=== PATIENT | female | born 1950 | race African-American/Black ===

== ENCOUNTER 2025-05-17 10:14 | Inpatient (IN) | payer MEDICARE ==
[~2025-05-17] VITALS: Ht 167.6 cm; Wt 92.5 kg
[2025-05-17 10:17] VITALS: O2SAT 98
[2025-05-17] MEDS: PIPERACILLIN/TAZO 3.375G/50ML 50 ML IV ONE (11:00)
[2025-05-17] MEDS: SODIUM CHLORIDE 0.9% (SEPSIS BOLUS) IV ONE (11:00)
[2025-05-17 11:15] LABS: BASOPHILS % 0.3 % (0.0-2.0); EOSINOPHILS % 0.2 % (0.0-5.0); HEMATOCRIT. 48.0 % (36.0-48.0); HEMOGLOBIN. 15.4 g/dL (12.0-16.0); LYMPHOCYTES % 10.7 % (20.0-50.0); MEAN PLATELET VOLUME 10.6 fl (7.4-10.4); MONOCYTES % 8.9 % (2.0-8.0); NEUTROPHILS % 79.9 % (40.0-76.0); PLATELET 232 x1000/uL (130-400); RED BLOOD CELL COUNT 5.67 mill/uL (4.2-5.4); RED CELL DISTRIBUTION WIDTH 14.2 % (11.6-14.6)
[2025-05-17] MEDS: VANCOMYCIN 1G PREMIX 200 ML IV ONE (11:30)
[2025-05-17 11:32] LABS: CREATININE 1.0 mg/dL (0.6-1.0); UREA NITROGEN BLOOD 12 mg/dL (9-23)
[2025-05-17 11:34] LABS: ASPARTATE AMINOTRANSFERASE 11 IU/L (<34); BILIRUBIN DIRECT 1.0 mg/dL (<=3.0); BILIRUBIN TOTAL 2.5 mg/dL (0.1-1.0); PROTEIN TOTAL 7.2 g/dL (6.0-8.3)
[2025-05-17 11:45] LABS: INR 1.1
[2025-05-17] MEDS ORDERED: ACETAMINOPHEN 325MG TABLET PO PRN ×2 (14:30)
[2025-05-17] MEDS ORDERED: IPRATROPIUM/ALBUTEROL 0.5-3(2.5)MG/3ML NEB HHN PRN (14:30)
[2025-05-17] MEDS ORDERED: CLONIDINE 0.1MG TABLET PO PRN (14:30)
[2025-05-17] MEDS ORDERED: DOCUSATE SODIUM 100MG CAPSULE PO PRN (14:30)
[2025-05-17] MEDS ORDERED: ONDANSETRON HCL 4MG/2ML INJ IV PRN (14:30)
[2025-05-17 20:00] VITALS: BP_SYST 101; BP_SYST 98; BP_DIAS 50; PULSE 104; PULSE 91; RESP 18; TEMP 36.0844; TEMP 36.7; O2SAT 97
[2025-05-18] VITALS: BP 101/50; PULSE 104; RESP 18; TEMP 36.1; O2SAT 95
[2025-05-18] MEDS: POTASSIUM CHLORIDE 20MEQ/PACKET PO NR (00:28)
[2025-05-18] MEDS: SODIUM CHLORIDE 0.9% 1,000 ML IV SCH (00:29)
[2025-05-18 04:00] VITALS: BP 92/53; PULSE 105; RESP 18; TEMP 36.1; O2SAT 96
[2025-05-18] MEDS: PIPERACILLIN/TAZO 3.375G/50ML 50 ML IV SCH (05:33)
[2025-05-18 07:10] LABS: BASOPHILS % 0.3 % (0.0-2.0); EOSINOPHILS % 0.3 % (0.0-5.0); HEMATOCRIT. 38.4 % (36.0-48.0); HEMOGLOBIN. 12.8 g/dL (12.0-16.0); LYMPHOCYTES % 17.3 % (20.0-50.0); MEAN PLATELET VOLUME 10.9 fl (7.4-10.4); MONOCYTES % 10.3 % (2.0-8.0); NEUTROPHILS % 71.8 % (40.0-76.0); PLATELET 181 x1000/uL (130-400); RED BLOOD CELL COUNT 4.52 mill/uL (4.2-5.4); RED CELL DISTRIBUTION WIDTH 14.1 % (11.6-14.6)
[2025-05-18 07:16] LABS: CREATININE 0.7 mg/dL (0.6-1.0)
[2025-05-18 07:17] LABS: UREA NITROGEN BLOOD 8 mg/dL (9-23)
[2025-05-18 08:00] VITALS: BP 115/49; PULSE 86; RESP 18; TEMP 36.4; O2SAT 98
[2025-05-18] MEDS: VANCOMYCIN 1.25GM/250ML IV SCH (09:32)
[2025-05-18] MEDS ORDERED: ATEN-42 PO (10:59)
[2025-05-18] MEDS ORDERED: ASPI-1497 PO (10:59)
[2025-05-18] MEDS ORDERED: LEFL10TA19 PO (10:59)
[2025-05-18] MEDS ORDERED: FERR325T6 PO (10:59)
[2025-05-18] MEDS ORDERED: PARO30TA62 PO (10:59)
[2025-05-18] MEDS: NYSTATIN/TRIAMCIN CREAM 15GM TOP SCH (11:30)
[2025-05-18 12:00] VITALS: BP 118/52; PULSE 80; RESP 17; TEMP 36.7; O2SAT 97
[2025-05-18 20:00] VITALS: BP 99/50; PULSE 104; RESP 20; TEMP 36.9; O2SAT 98
[2025-05-18] MEDS: ATENOLOL 25MG TABLET PO SCH (20:00)
[2025-05-18] MEDS: ASPIRIN 81MG EC TABLET PO SCH (22:38)
[2025-05-19] VITALS: BP 107/57; PULSE 101; RESP 19; TEMP 36.5; O2SAT 98
[2025-05-19 04:00] VITALS: BP 159/59; PULSE 64; RESP 18; TEMP 36.1; O2SAT 93
[2025-05-19 08:12] VITALS: BP 100/54; PULSE 86; RESP 18; TEMP 36; O2SAT 97
[2025-05-19] MEDS ORDERED: LEFLUNOMIDE 10 MG TABLET PO SCH (09:00)
[2025-05-19] MEDS: FERROUS SULFATE 325MG TABLET PO SCH (09:15)
[2025-05-19] MEDS: PAROXETINE HCL 10MG TABLET PO SCH (09:17)
[2025-05-19 11:11] LABS: BASOPHILS % 0.4 % (0.0-2.0); EOSINOPHILS % 0.6 % (0.0-5.0); HEMATOCRIT. 39.1 % (36.0-48.0); HEMOGLOBIN. 12.8 g/dL (12.0-16.0); LYMPHOCYTES % 17.2 % (20.0-50.0); MEAN PLATELET VOLUME 10.6 fl (7.4-10.4); MONOCYTES % 7.0 % (2.0-8.0); NEUTROPHILS % 74.8 % (40.0-76.0); PLATELET 168 x1000/uL (130-400); RED BLOOD CELL COUNT 4.60 mill/uL (4.2-5.4); RED CELL DISTRIBUTION WIDTH 14.6 % (11.6-14.6)
[2025-05-19 11:21] LABS: CREATININE 0.9 mg/dL (0.6-1.0); UREA NITROGEN BLOOD 9 mg/dL (9-23)
[2025-05-19 11:25] LABS: T4 FREE 1.35 ng/dL (0.89-1.76)
[2025-05-19 11:32] LABS: FOLIC ACID (FOLATE) SERUM 7.77 ng/mL (>5.38); VITAMIN B12 SERUM 493 pg/mL (211-911)
[2025-05-19 12:00] VITALS: BP 119/58; PULSE 76; RESP 18; TEMP 36.6; O2SAT 98
[2025-05-19] MEDS: LEFLUNOMIDE 20 MG TABLET PO SCH (13:52)
[2025-05-19 15:40] LABS: CLARITY URINE CLEAR (CLEAR); COLOR URINE YELLOW (YELLOW); GLUCOSE URINE NEGATIVE (NEGATIVE); KETONES URINE NEGATIVE (NEGATIVE); LEUKOCYTE ESTERASE URINE 2+ (NEGATIVE); NITRITE URINE NEGATIVE (NEGATIVE); OCCULT BLOOD URINE NEGATIVE (NEGATIVE); PH URINE 5.5 (4.5-8.0); PROTEIN URINE TRACE (NEGATIVE); SPECIFIC GRAVITY URINE 1.019 (1.005-1.030); UROBILINOGEN URINE 1.0 E.U./dL (0.2-1.0)
[2025-05-19 16:04] LABS: BACTERIA URINE 2+; RBC URINE 0-2 /hpf (0-2); SQUAMOUS EPITHELIAL CELL URINE 1+ /lpf (RARE/1+)
[2025-05-19 16:05] LABS: YEAST URINE 1+
[2025-05-19 16:49] VITALS: BP 118/58; PULSE 86; RESP 18; TEMP 36.2; O2SAT 98
[2025-05-19] MEDS: MENTHOL/LANOLIN/CALAMINE/ZN OX OINT 71GM TOP SCH (17:28)
[2025-05-19 20:00] VITALS: BP 103/59; PULSE 88; RESP 18; TEMP 36.7; O2SAT 97
[2025-05-20] VITALS: BP 109/80; PULSE 82; RESP 18; TEMP 37; O2SAT 97
[2025-05-20 04:00] VITALS: BP 100/58; PULSE 80; RESP 18; TEMP 36.7; O2SAT 98
[2025-05-20 08:30] VITALS: BP 129/81; PULSE 58; RESP 20; TEMP 36.7; O2SAT 100
[2025-05-20] MEDS ORDERED: POTASSIUM CHLORIDE 20MEQ TABLET SR PO SCH (09:45)
[2025-05-20 12:15] VITALS: BP 117/52; PULSE 59; RESP 20; TEMP 36.4; O2SAT 98
[2025-05-20 13:30] LABS: PLATELET 181 x1000/uL (130-400); RED BLOOD CELL COUNT 4.44 mill/uL (4.2-5.4); RED CELL DISTRIBUTION WIDTH 14.0 % (11.6-14.6)
[2025-05-20 13:43] LABS: CREATININE 1.0 mg/dL (0.6-1.0)
[2025-05-20 13:44] LABS: UREA NITROGEN BLOOD 7 mg/dL (9-23)
[2025-05-20] MEDS: POTASSIUM CHLORIDE 20MEQ TABLET SR PO SCH (13:54)
[2025-05-20] MEDS: FLUCONAZOLE 150MG TABLET PO SCH (13:54)
[2025-05-20 16:30] VITALS: BP 120/82; PULSE 57; RESP 18; TEMP 36.5; O2SAT 98
[2025-05-20 20:00] VITALS: BP 124/42; PULSE 58; RESP 17; TEMP 36.5; O2SAT 99
[2025-05-21] VITALS (8 sets, daily range): BP systolic 111–138; BP diastolic 45–62; PULSE 55–72; RESP 18–20; TEMP 36.2–36.7; O2SAT 97–100
[2025-05-21 06:56] LABS: BASOPHILS % 0.3 % (0.0-2.0); EOSINOPHILS % 0.5 % (0.0-5.0); HEMATOCRIT. 36.7 % (36.0-48.0); HEMOGLOBIN. 12.2 g/dL (12.0-16.0); LYMPHOCYTES % 13.7 % (20.0-50.0); MEAN PLATELET VOLUME 10.2 fl (7.4-10.4); MONOCYTES % 8.9 % (2.0-8.0); NEUTROPHILS % 76.6 % (40.0-76.0); PLATELET 179 x1000/uL (130-400); RED BLOOD CELL COUNT 4.35 mill/uL (4.2-5.4); RED CELL DISTRIBUTION WIDTH 14.2 % (11.6-14.6)
[2025-05-21 07:17] LABS: CREATININE 1.0 mg/dL (0.6-1.0); UREA NITROGEN BLOOD 7 mg/dL (9-23)
[2025-05-21] MEDS: LEFLUNOMIDE 10 MG TABLET PO SCH (09:33)
[2025-05-21] MEDS: VANCOMYCIN 1GM PMX (XELLIA) 200 ML IV SCH (11:50)
[2025-05-22] VITALS: BP 126/49; PULSE 74; RESP 20; TEMP 36.3; O2SAT 100
[2025-05-22 04:00] VITALS: BP 113/58; PULSE 71; RESP 20; TEMP 36.1; O2SAT 100
[2025-05-22] MEDS ORDERED: NYST15CR49 TOP (07:13)
[2025-05-22 08:00] VITALS: BP 106/46; PULSE 60; RESP 17; TEMP 36.6; O2SAT 100
[2025-05-22 12:00] VITALS: BP 129/46; PULSE 60; RESP 19; TEMP 36.7; O2SAT 97
[2025-05-22 16:30] VITALS: BP 141/78; PULSE 76; RESP 20; TEMP 36.7; O2SAT 97
[2025-05-22 20:00] VITALS: BP 117/52; PULSE 79; RESP 16; TEMP 36.7; O2SAT 98
[2025-05-23] VITALS: BP 109/47; PULSE 60; RESP 18; TEMP 36.7; O2SAT 96
[2025-05-23 04:00] VITALS: BP 113/48; PULSE 65; RESP 16; TEMP 36.7; O2SAT 96
[2025-05-23 08:00] VITALS: BP 110/52; PULSE 66; RESP 17; TEMP 36.4; O2SAT 96
[2025-05-23 12:00] VITALS: BP 115/47; PULSE 62; RESP 17; TEMP 36.7; O2SAT 97
[2025-05-23 16:00] VITALS: BP 110/49; PULSE 69; RESP 18; TEMP 36.9; O2SAT 97
[2025-05-23 20:00] VITALS: BP 119/52; PULSE 69; RESP 20; TEMP 37; O2SAT 97
[2025-05-24] VITALS: BP 120/80; PULSE 80; RESP 18; TEMP 36.7; O2SAT 97
[2025-05-24 04:00] VITALS: BP 112/59; PULSE 54; RESP 18; TEMP 36.8; O2SAT 97
[2025-05-24 08:00] VITALS: BP 134/55; PULSE 54; RESP 18; TEMP 36.8; O2SAT 98
[2025-05-24 12:00] VITALS: BP 153/56; PULSE 54; RESP 20; TEMP 36.1; O2SAT 93
[2025-05-24 16:00] VITALS: BP 130/47; PULSE 55; RESP 18; TEMP 36.1; O2SAT 95
[2025-05-24 20:00] VITALS: BP 132/50; PULSE 68; RESP 18; TEMP 36.8; O2SAT 98
[2025-05-25] VITALS: BP 128/70; PULSE 80; RESP 20; TEMP 36.9; O2SAT 98
[2025-05-25 04:00] VITALS: BP 113/60; PULSE 65; RESP 20; TEMP 36.8; O2SAT 97
[2025-05-25 08:00] VITALS: BP 140/56; PULSE 58; RESP 20; TEMP 36.7; O2SAT 99
[2025-05-25 12:00] VITALS: BP 136/67; PULSE 63; RESP 20; TEMP 36.8; O2SAT 98
[2025-05-25 15:14] VITALS: BP 131/71; PULSE 63; RESP 18; TEMP 98
[2025-05-25 16:00] VITALS: BP 135/61; PULSE 61; RESP 20; TEMP 36.8; O2SAT 98
== END 2025-05-25 18:29 | DRG 871 ==
LOC: ER 10:14 → 8WST 11:58 → EDBEDREQTM 12:12 → EDBEDREQ 12:12 → ENRESERV 15:47 → 8WST 05-20 17:15
PROVIDERS: ADMIT Family Medicine Adult Medicine; ATTEND Family Medicine Adult Medicine
DX: A41.9 Sepsis, unspecified organism (principal); G92.8 Other toxic encephalopathy; G93.41 Metabolic encephalopathy; L03.90 Cellulitis, unspecified; B37.49 Other urogenital candidiasis; R65.20 Severe sepsis without septic shock; E86.0 Dehydration; F32.A Depression, unspecified; I10 Essential (primary) hypertension; B36.9 Superficial mycosis, unspecified; R26.9 Unspecified abnormalities of gait and mobility; D64.9 Anemia, unspecified; Z96.652 Presence of left artificial knee joint; R53.81 Other malaise; Z79.82 Long term (current) use of aspirin
CPT/HCPCS: 36415; 71045; 80048; 80076; 80202; 81003; 82306; 82607; 82746; 83605; 84145; 84425; 84439; 84443; 85025; 85027; 87106; 92610; 93005; 93970; 96365; 96367; 97110; 97162; 97166; 97530; 99291; A6449; J2543; J3373; J7030